=== PATIENT | female | born 1995 | race Caucasian/White ===

== ENCOUNTER 2017-05-31 04:48 | Emergency (ER) | payer OTHER ==
[~2017-05-31] VITALS: Ht 172.7 cm; Wt 52.3 kg
[2017-05-31] MEDS ORDERED: ONDANSETRON HCL 4 MG TABLET PO ONE (07:15)
[2017-05-31 07:56] VITALS: BP 123/79
== END 2017-05-31 08:07 | disposition home or self-care (01) ==
LOC: EMS 04:49
DX: R19.7 Diarrhea, unspecified (principal); R11.2 Nausea with vomiting, unspecified; F12.90 Cannabis use, unspecified, uncomplicated; Z88.0 Allergy status to penicillin
CPT/HCPCS: 81002; 81025; 99283; Q0162